=== PATIENT | male | born 1970 | race Caucasian/White ===

== ENCOUNTER → 2020-09-11 | Outpatient (CLI) | payer OTHER ==
[~2020-09-11] MED LIST: ALL DAY ALLERGY10 M2 PO; AMITRIPTYLINE H25 MG PO; ASPIR 8181 MG PO; CENTRUM SILVER PO; CETIRIZINE HCL10 MG PO; CRESTOR10 MG PO; FLOMAX0.4 MG PO; FLONASE 0.05% N16 GM; GLUCOSAMINE PO; LOVAZA1 GM PO; MOBIC15 MG PO; NITROSTAT0.4 MG SL; OSTEO BI-FLEX1 EAC1 PO; POLYETHYLENE MC; PROSCAR5 MG PO; PROTONIX40 MG PO; PROVENTIL HFA6.7 GM INH; QUESTRAN LIGHT 44 GM PO; SINGULAIR10 MG PO; TESSALON PERLE100 MG PO; TOPROL XL25 MG PO; ULTRAM50 MG PO; VALIUM 2 MG TAB2 MG PO; VIT D PO; VOLTAREN ARTHRI20 GM PO; ZANAFLEX4 MG PO
== END ==
LOC: EXRD 09-04 10:15
DX: R74.8 Abnormal levels of other serum enzymes (principal); K76.0 Fatty (change of) liver, not elsewhere classified; Z90.49 Acquired absence of other specified parts of digestive tract
CPT/HCPCS: 76705

== ENCOUNTER → 2020-12-25 | Day surgery (SDC) | payer OTHER | END | disposition home or self-care (01) | LOC: OR 06:26 | DX: Z12.11 Encounter for screening for malignant neoplasm of colon (principal); N40.0 Benign prostatic hyperplasia without lower urinary tract symptoms; K21.9 Gastro-esophageal reflux disease without esophagitis; M19.90 Unspecified osteoarthritis, unspecified site; I10 Essential (primary) hypertension; E78.5 Hyperlipidemia, unspecified; G47.33 Obstructive sleep apnea (adult) (pediatric); F41.9 Anxiety disorder, unspecified; F32.9 Major depressive disorder, single episode, unspecified; Z88.1 Allergy status to other antibiotic agents; Z79.82 Long term (current) use of aspirin; Z79.899 Other long term (current) drug therapy | CPT/HCPCS: J2704; J7120 ==

== ENCOUNTER → 2021-04-18 | Outpatient (CLI) | payer OTHER | LOC: KOH-I 09:03 | DX: M25.461 Effusion, right knee (principal); S83.241A Other tear of medial meniscus, current injury, right knee, initial encounter | CPT/HCPCS: 73721 ==

== ENCOUNTER → 2021-09-26 | Outpatient (CLI) | payer OTHER ==
[~2021-09-26] MED LIST changes: +LORATADINE-D 11 EACH PO; +PEPCID PO; +TOPROL XL50 MG PO
[2021-09-26 11:06] LABS: HEMOGLOBIN 15.2 gm/dl (14.0-17.5); RED BLOOD COUNT 5.07 M/UL (4.20-5.50); WHITE BLOOD COUNT 5.7 K/UL (4.5-11.0)
[2021-09-26 11:38] LABS: BUN/CREATININE RATIO 16 (0-10)
== END ==
LOC: OPSV2 09:30
PROVIDERS: Orthopaedic Surgery
DX: Z01.818 Encounter for other preprocedural examination (principal); G56.01 Carpal tunnel syndrome, right upper limb
CPT/HCPCS: 36415; 80048; 85025; 93005

== ENCOUNTER → 2021-10-04 | Day surgery (SDC) | payer OTHER | END | disposition home or self-care (01) | LOC: OR 08-30 15:30 | DX: G56.01 Carpal tunnel syndrome, right upper limb (principal); I10 Essential (primary) hypertension; E78.5 Hyperlipidemia, unspecified; M19.90 Unspecified osteoarthritis, unspecified site; Z88.1 Allergy status to other antibiotic agents; Z79.1 Long term (current) use of non-steroidal anti-inflammatories (NSAID); Z79.899 Other long term (current) drug therapy | CPT/HCPCS: J1100; J2250; J2405; J2704; J2765; J3010; J7120 ==

== ENCOUNTER → 2021-10-25 | Day surgery (SDC) | payer OTHER ==
[~2021-10-25] MED LIST changes: +DICLOFENAC GEL 1% TOP; +PEPCID20 MG PO; +ZYRTEC10 MG PO
== END | disposition home or self-care (01) ==
LOC: OR 08:26
DX: G56.02 Carpal tunnel syndrome, left upper limb (principal); I10 Essential (primary) hypertension; E78.5 Hyperlipidemia, unspecified; K21.9 Gastro-esophageal reflux disease without esophagitis; M19.90 Unspecified osteoarthritis, unspecified site; Z88.8 Allergy status to other drugs, medicaments and biological substances; Z79.82 Long term (current) use of aspirin; Z79.899 Other long term (current) drug therapy
CPT/HCPCS: J1100; J1885; J2001; J2250; J2405; J2704; J3010